=== PATIENT | male | born 1955 | race Caucasian/White ===

== ENCOUNTER 2019-07-23 08:42 | Observation (INO) ==
[2019-07-23 09:32] LABS: Basophils % 0.6 % (0.0-0.8); Eosinophils # 0.2 10*3/uL (0.0-0.87); Eosinophils % 2.7 % (0.00-10.9); Hemoglobin 15.6 GM/DL (14.0-18.0); Immature Granulocytes % 0.3 %; Immature Granulocytes Absolute 0.02 #; Lymphocytes # 1.8 10*3/uL (1.4-4.0); Lymphocytes % 27.3 % (21.2-54.2); Mean Corpuscular HGB Conc 34.7 GM/DL (32-36); Mean Corpuscular Volume 87.9 FL (87-102); Mean Platelet Volume 11.2 FL (9.6-12.0); Monocytes % 9.8 % (1.7-12.7); Neutrophils % 59.3 % (38.7-73.9); Platelet Count 186 T/CUMM (130-400); Red Blood Count 5.12 MC/CUMM (3.8-5.5); Red Cell Distribution Width 12.6 % (9.3-17.3); White Blood Count 6.7 T/CUMM (4-12)
[2019-07-23 09:40] LABS: PT Patient Result 10.6 SECS (9.6-12.2); Partial Thromboplastin Time 26.4 SECS (20.8-36.0)
[2019-07-23 09:43] LABS: Albumin 3.6 G/DL (3.4-5.0); Calcium 8.2 MG/DL (8.5-10.1); Osmolality,Calculated 281.1 MOS/KG (273-304); Total Protein 6.5 G/DL (6.4-8.3)
[2019-07-23 09:44] LABS: Troponin I < 0.015 NG/ML (0.00-0.045)
[2019-07-23] MEDS ORDERED: LACTULOSE 20 GM/30 ML UDCUP PO PRN (12:10)
[2019-07-23] MEDS ORDERED: ACETAMINOPHEN 325 MG TABLET PO PRN (12:10)
[2019-07-23] MEDS ORDERED: ONDANSETRON 4 MG/2 ML VIAL IV PRN (12:10)
[2019-07-23] MEDS ORDERED: ENOXAPARIN 40 MG/0.4 ML SYRINGE SUBCUT SCH (12:30)
[2019-07-23 13:13] LABS: Troponin I < 0.015 NG/ML (0.00-0.045)
[2019-07-23 13:23] LABS: Risk Ratio 5.27; Thyroid Stimulating Hormone 1.48 uIU/ml (0.358-3.74); VLDL CHOLESTEROL 33.2 MG/DL
[2019-07-23] MEDS: PANTOPRAZOLE 40 MG TABLET PO SCH (13:59)
[2019-07-23] MEDS ORDERED: KETOROLAC 15 MG/1 ML VIAL IV ONE (14:07)
[2019-07-23] MEDS ORDERED: KETOROLAC 15 MG/1 ML VIAL IV PRN (14:07)
[2019-07-23] MEDS ORDERED: busPIRone 5 MG TABLET PO SCH (14:30)
[2019-07-23] MEDS: amLODIPine 5 MG TABLET PO SCH (14:50)
[2019-07-23 15:55] LABS: Apearance,Urine CLEAR (Clear); Bilirubin,Urine Negative (Negative); Blood, Urine Negative (Negative); Glucose,Urine (UA) Negative (Negative); Ketones,Urine Negative (Negative); Nitrite,Urine Negative (Negative); Protein,Urine Negative; RBC,Urine 1 /HPF (0-4); Urine Color Colorless (Yellow); Urine Specific Gravity 1.002 (1.001-1.035); Urine Urobilinogen < 2.0 EU/DL (0.2-1.0); WBC,Urine <1 /HPF (0-6)
[2019-07-23 16:08] LABS: Troponin I < 0.015 NG/ML (0.00-0.045)
[2019-07-24 04:38] LABS: Basophils % 0.5 % (0.0-0.8); Eosinophils # 0.2 10*3/uL (0.0-0.87); Eosinophils % 3.3 % (0.00-10.9); Hematocrit 43.6 VOL% (42.0-52.0); Immature Granulocytes % 0.5 %; Immature Granulocytes Absolute 0.03 #; Lymphocytes # 1.9 10*3/uL (1.4-4.0); Lymphocytes % 30.9 % (21.2-54.2); Mean Corpuscular HGB Conc 34.4 GM/DL (32-36); Mean Corpuscular Volume 88.4 FL (87-102); Mean Platelet Volume 10.9 FL (9.6-12.0); Monocytes % 7.8 % (1.7-12.7); Platelet Count 170 T/CUMM (130-400); Red Blood Count 4.93 MC/CUMM (3.8-5.5); Red Cell Distribution Width 12.5 % (9.3-17.3); White Blood Count 6.1 T/CUMM (4-12)
[2019-07-24 04:51] LABS: Calcium 8.1 MG/DL (8.5-10.1)
[2019-07-24] MEDS: PANTOPRAZOLE 40 MG TABLET PO SCH ×2 (06:20→09:09)
[2019-07-24 08:05] VITALS: BP 135/85
[2019-07-24] MEDS ORDERED: OMEGA 3 ACID ETHYL ESTERS 1 GM CAPSULE PO SCH (09:00)
[2019-07-24] MEDS ORDERED: OLODATEROL INH SCH (09:00)
[2019-07-24] MEDS: amLODIPine 5 MG TABLET PO SCH (09:18)
[2019-07-24] MEDS ORDERED: ESCITALOPRAM 10 MG TABLET PO SCH (10:00)
[2019-07-24] MEDS ORDERED: ALBUTEROL 2.5 MG/3 ML NEB RESP TX PRN (11:00)
== END 2019-07-24 10:38 | disposition home or self-care (01) ==
LOC: N.EDINP 08:42 → N.ED 08:42 → N.2W 12:56
PROVIDERS: ADMIT Internal Medicine; ATTEND Internal Medicine